=== PATIENT | male | born 1980 | race Caucasian/White ===

== ENCOUNTER → 2016-09-29 | Outpatient (CLI) | payer OTHER ==
[~2016-09-29] MED LIST: COLACE100 MG PO; DIAZEPAM 10 MG10 M1 PO; FLEXERIL PO; GLUCOPHAGE1000 MG PO; GLUCOTROL5 MG PO; HYDROCODON-ACE1 EA10 PO; HYDROCODON-ACE1 EAC2 PO; METOCLOPRAMIDE PO; NICOTINE TRANSD21 M1; NORCO 10-325 T1 EACH PO; OXYCODONE HCL E40 MG PO; OXYCONTIN20 MG PO; ROBAXIN 750 MG750 M1 PO; SEROQUEL 100 M100 M1 PO; SEROQUEL PO; TRAZODONE HCL100 MG PO; XANAX XR1 MG PO; ZANTAC 150MG T150 M1 PO
== END ==
LOC: RAD 13:36
DX: M54.16 Radiculopathy, lumbar region (principal); M25.551 Pain in right hip

== ENCOUNTER 2018-07-29 09:11 | Inpatient (IN) | payer OTHER ==
[~2018-07-29] VITALS: Ht 195.6 cm; Wt 130.7 kg
[~2018-07-29 09:11] MED LIST changes: -SEROQUEL 100 M100 M1 PO; +SEROQUEL400 MG PO
[2018-07-29 09:18] VITALS: BP 133/88
[2018-07-29 09:53] LABS: ABSOLUTE NEUTROPHILS 4.1 thou/uL (1.4-8.2); BASOPHILS 1.2 % (0.0-2.0); EOSINOPHILS 1.4 % (0.0-3.0); HEMATOCRIT 42.2 % (42.0-52.0); HEMOGLOBIN 15.3 gm/dL (14.0-18.0); LYMPHOCYTES 26.7 % (24.0-44.0); MCH 33.7 pg (26.0-34.0); MCHC 36.3 g/dL (28.0-37.0); MCV 92.9 fL (80.0-100.0); MONOCYTES 8.4 % (1.0-8.0); PLATELET COUNT 136 thou/uL (150-400); POLYS 62.3 % (36.0-66.0); RBC 4.55 mil/uL (4.50-6.00); WBC 6.6 thou/uL (4.0-11.0)
[2018-07-29 10:05] LABS: CALCIUM 9.2 mg/dL (8.5-10.1); CREATININE 0.9 mg/dL (0.7-1.3); POTASSIUM 3.4 mmol/L (3.5-5.1)
[2018-07-29 11:15] VITALS: BP 118/83
[2018-07-29 11:33] VITALS: BP 115/82
[2018-07-29 12:00] VITALS: BP 142/86
[2018-07-29 19:47] VITALS: BP 142/99
--- NOTE | 2018-07-29 20:17 | NUR ---
VSS-AFEBRILE. LUNGS CLEAR-ROOM AIR. VERY AGITATED AND RESTLESS WHEN HIS MEDICATIONS ARE NOT GIVEN TO HIM WHEN HE REQUESTS THEM. VISIBLY SHAKES AND CLENCHES FISTS, AND THRASHES AROUND THE BED. STAFF WAS WORRIED AT ONE POINT THAT HE WAS GOING TO GET PHYSICAL. CALLED DR ALARCON TO REPORT THIS ACTIVITY, NEW ORDERS TAKEN AND IMPLEMENTED. CONSULT TO PSYCH- DR CARRIE WEAVER, CALLED, AND FACESHEET FAXED OVER PER REQUEST. EDUCATED ON MEDICATION REGIMEN, WELL APPROPRIATE BEHAVIOR THAT IS EXPECTED, VERBALIZED UNDERSTANDING. LEFT SIDE OF FACE REMAINS PINK, HARD, AND SLIGHTLY SWOLLEN. NO DIFFICULTY VOIDING.
[2018-07-29 23:09] LABS: GLYCOHEMOGLOBIN (HGB A1C) 11.9 % (4.8-5.6)
--- NOTE | 2018-07-30 02:43 | NUR ---
PT HAS LOTS OF COMPLAINS ABOUT HIS MEDICATIONS. PT WANTED HIS HS MEDS GIVEN AFTER 11PM.COMPLAINING ABOUT THE DOSAGES AND FREQUENCY-CLEARLY STATES THAT HE WILL HAVE TO BE DISCHARGED TOMORROW. PT ALSO COMPLAINING THAT HIS FACIAL SWELLING IS WORSE THAN WHEN HE CAME TO THE HOSPITAL.HE IS UP AD GEMA IN ROOM. WANTED TWO HYDROCODONES FOR PAIN-PER HOME REGIMEN. PT DENIES ANY NAUSEA OR VOMITING. WAS C/O ITCHING. PT FELT THAT THE INSULIN HE RECEIVED EARLIER IN THE ER WAS REACTING WITH HIM.HE REPORTED THE ITCHING STARTED AT AROUND 10PM. BENADRYL ORDERED AND GIVEN.PT REFUSED HS INSULIN. ACCUCHECK WAS 226.PT HAS SOME ANXIETY AND IS IRRITABLE. LISTENING EAR PROVIDED.PT WAS RESPECTFUL TOWARDS THIS NURSE.
[2018-07-30 04:10] VITALS: BP 119/83
[2018-07-30 06:32] LABS: HEMATOCRIT 36.3 % (42.0-52.0); MCH 33.7 pg (26.0-34.0); MCHC 36.7 g/dL (28.0-37.0); MCV 91.7 fL (80.0-100.0); RBC 3.96 mil/uL (4.50-6.00); RDW 12.6 % (10.5-14.5); WBC 6.3 thou/uL (4.0-11.0)
[2018-07-30 06:34] LABS: CALCIUM 8.9 mg/dL (8.5-10.1); CREATININE 0.8 mg/dL (0.7-1.3); POTASSIUM 3.1 mmol/L (3.5-5.1)
[2018-07-30 06:43] LABS: HEMOGLOBIN 13.3 gm/dL (14.0-18.0)
[2018-07-30 07:30] VITALS: BP 142/88
--- NOTE | 2018-07-30 07:52 | HC ---
[facility] [place] [address] [place] [address] CONSULTATION Name: CHIRAG PIMENTEL Kalen Room #: 422-P [facility] IN .R.#: [id number] Admission: 07/29/18 ������������������ Attend Phys: Abigail Valdes MD Discharge: ������������������ Date of : 76 Report #: [id number] THIS REPORT FOR: //name// CC: Enrique Valdes DATE OF SERVICE: 07/29/2018 INFECTIOUS DISEASE CONSULTATION ATTENDING PHYSICIAN: Dr. Valdes. REASON FOR EVALUATION: Left facial cellulitis. HISTORY OF PRESENT ILLNESS: Chart reviewed, patient examined. This is a 37-year-old with a known history of schizophrenia, chronic back pain, on chronic opioids, who developed a papular type lesion over the left cheek. He raised question of possible spider bite. He said he has had those in the past. It initially was pruritic, became more painful over time and increased in terms of area with associated subcutaneous induration as well and is quite painful. He experienced some fevers and did have anorexia. His blood sugars have been markedly elevated. Evaluation, imaging suggested preseptal depth, there is question of cellulitis and did not seem to involve the parotid gland. He was empirically started on therapy with piperacillin and tazobactam as well as vancomycin. At this point, he has severe pain. He denies any significant breathing difficulties. No swallowing difficulties. ALLERGIES: NAPROXEN, FENTANYL, MEPERIDINE. CURRENT MEDICATIONS: Include quetiapine, Zosyn, insulin, hydrocodone, diltiazem, vancomycin. PAST MEDICAL HISTORY: Depression, anxiety, may be a degree of chronic back pain. SOCIAL HISTORY: Smokes cigarettes a pack a day for the last 25 years. No ethanol, uses marijuana. FAMILY HISTORY: Noncontributory. REVIEW OF SYSTEMS: Otherwise unremarkable with exception noted above. PHYSICAL EXAMINATION: GENERAL: He is quite distressed and he is tearful at times that he attributes secondary to severe pain, which he has related not only to his back, but now his left cheek as well. He appears to be well nourished, in moderate to marked [facility] [address] [place] [address] CONSULTATION Name: CHIRAG PIMENTEL Kalen Room #: 422-P [facility] IN M.R.#: [id number] Admission: 07/29/18 ������������������ Attend Phys: Abigail Valdes MD Discharge: ������������������ Date of : 76 Report #: [id number] distress. VITAL SIGNS: Temperature 98.2, pulse 90, respirations 16, blood pressure 142/86. SKIN: Warm. HEENT: Remarkable for clear, asymmetrical swelling involving the left cheek. There is an area what appears to be likely a puncture site, it is quite indurated, very tender, does not extend to the preauricular site. I do not appreciate any significant adenopathy. Oropharynx is without lesion. Teeth are moderate disrepair. NECK: Supple. LUNGS: Clear to auscultation. HEART: Regular rate. I do not appreciate any murmur. ABDOMEN: Soft. He is obese, nontender. GENITOURINARY: Deferred. RECTAL: Deferred. EXTREMITIES: No cyanosis. LABORATORY DATA: CT of soft tissues of the neck showed subcutaneous inflammation along the left cheek, question of cellulitis. No fluid collection. Lactic acid 1.4. Electrolytes: Sodium 132, potassium 3.4, chloride 95, bicarbonate is 26, BUN and creatinine 10 and 0.9, glucose was 558. CBC: White count of 6.6, H and H 15.3 and 42.2 and platelets of 136. ASSESSMENT: Left cellulitis involving the maxillary region with associated induration. I do not see an area of blackened eschar that would raise question of a brown recluse, so this certainly could have been either a bite as an avenue of what bacteria had been on the skin deeper. Continue combination therapy. I would expect a Staph or Strep etiology. I do not think there is any evidence of associated dental issue at this point, somewhat certainly suggestive of new onset diabetes mellitus. We will try to control the sugars. We will await the blood cultures. Symptomatic pain control. ��������������������������������������������� <ELECTRONICALLY SIGNED> ���������������������������������������� By: Spencer Frey MD ��������������������������������������������� 07/30/18 [id number] Spencer Frey MD /nt
== END 2018-07-30 11:53 | disposition left against medical advice (07) | DRG 603 ==
LOC: ER 09:11 → EROBS 11:07 → 4E 11:07
PROVIDERS: Student in an Organized Health Care Education/Training Program; ADMIT Internal Medicine
DX: L03.211 Cellulitis of face (principal); E87.1 Hypo-osmolality and hyponatremia; L02.01 Cutaneous abscess of face; F20.0 Paranoid schizophrenia; E87.6 Hypokalemia; G89.29 Other chronic pain; M54.9 Dorsalgia, unspecified; F11.90 Opioid use, unspecified, uncomplicated; F32.9 Major depressive disorder, single episode, unspecified; F41.9 Anxiety disorder, unspecified; F12.90 Cannabis use, unspecified, uncomplicated; F17.210 Nicotine dependence, cigarettes, uncomplicated; E11.65 Type 2 diabetes mellitus with hyperglycemia; Z53.21 Procedure and treatment not carried out due to patient leaving prior to being seen by health care provider; Z88.8 Allergy status to other drugs, medicaments and biological substances; Z79.899 Other long term (current) drug therapy
CPT/HCPCS: 10183; 10783